=== PATIENT | male | born 1975 | race Caucasian/White ===

== ENCOUNTER 2023-06-19 10:10 | Emergency (ER) | payer OTHER, SELFPAY ==
[2023-06-19 10:39] VITALS: BP 131/87; PULSE 90; RESP 16; TEMP 36.8; O2SAT 98
--- NOTE | 2023-06-19 14:27 | ED.WOUNDLAC ---
HPI - Wound/Laceration General Chief Complaint: Wound/Laceration Stated Complaint: finger laceration Time Seen by Provider: 06/19/23 13:25 Source: patient Mode of arrival: ambulatory Limitations: no limitations History of Present Illness HPI narrative: This is a 47-year-old male that presents to the emergency department for a laceration to the left 2nd finger sustained just prior to arrival. Reports he accidentally cut himself with a knife at work. Reports bleeding and pain to the area. He is up-to-date on his tetanus vaccination. Denies decreased range of motion or numbness. Review of Systems Review of Systems: CONSTITUTIONAL: Denies fever SKIN: Reports laceration NEUROLOGIC: Denies numbness All systems reviewed & are unremarkable except as noted in HPI and below PMFSH Past Medical History Medical History (Updated 06/19/23 @ 15:10 by Ankita Arthur PA-C) No active medical problems Social History Social History (Updated 06/19/23 @ 14:29 by Ankita Arthur PA-C) Occupation/Education: occupation Additional occupation/education comments: [employer] Ex[employer] Narrative: GENERAL: Well-appearing, well-nourished, and in no acute distress. HEAD: Normocephalic, atraumatic. EYES: EOMI. EXTREMITIES: Normal range of motion. No edema. Left 2nd finger with 1 cm linear laceration in the subcutaneous tissue over the middle phalanx SKIN: Warm, dry, no rash. NEURO: No focal deficits. Alert and oriented x3. PSYCH: Normal mood and affect Course Course Emergency Course: Patient educated on further wound care Vital Signs Vital signs: Vital Signs Temperature 98.3 F 06/19/23 10:39 Pulse Rate 90 06/19/23 10:39 Respiratory Rate 16 06/19/23 10:39 Blood Pressure 131/87 06/19/23 10:39 Pulse Oximetry 98 06/19/23 10:39 Temperature 98.3 F 06/19/23 10:39 Pulse Rate 90 06/19/23 10:39 Respiratory Rate 16 06/19/23 10:39 Blood Pressure 131/87 06/19/23 10:39 Pulse Oximetry 98 06/19/23 10:39 Procedures Laceration Laceration 1: Date: 06/19/23 Time: 15:09 Site: hand Side (If applicable): left Size (cm): 1 Description: linear Depth: simple, single layer Local Anesthetic: lidocaine 1% Amount of anesthesia used (mL): 4 Pre-repair: irrigated ====== Skin Level ====== Skin layer closed with: nylon Size (cm): 4-0 Number of sutures: 1 Technique: simple, interrupted ====== Subcutaneous Layer ====== ====== Muscle Layer ====== ====== Tendon Layer ====== MDM - Wound/Laceration MDM Narrative Medical decision making narrative: Patient presents to the emergency department for laceration of the left 2nd finger sustained just prior to arrival. His wound was irrigated and closed with sutures. He is up-to-date on tetanus. Was educated on further wound care. He is to follow up with primary provider. He was given warnings to return to the ER Differential Diagnosis Differential diagnosis: Likely laceration, abrasion and avulsion of skin Critical Care Time Critical Care Time Critical Care Time: No Discharge Plan Discharge Clinical Impression: Laceration Patient Disposition: Home, Self-Care Condition: Stable Instructions: Care For Your Stitches (ED), Laceration (ED) Additional Instructions: Return to the emergency department if you experience fever, redness or swelling of your wound, abnormal drainage from your wound, or any other symptoms that are concerning to you. Apply antibiotic ointment daily. Do not soak the wound. Clean with mild soap and water daily Follow-up with your primary care doctor for suture removal in 10-14 days. Follow-up/Referrals: Minesh,Robert Bran DO [Primary Care Provider] - 2 Weeks
[2023-06-19] MEDS: LIDOCAINE HCL 1% LOCAL INJ 10 ML VIAL INFILTRATE (14:30)
[2023-06-19 15:50] VITALS: BP 127/69; PULSE 84; RESP 18; TEMP 36.9; O2SAT 99
== END 2023-06-19 15:40 | disposition home or self-care (01) ==
PROVIDERS: Emergency Provider Physician Assistant; PCP Family Medicine
DX: S61.211A Laceration without foreign body of left index finger without damage to nail, initial encounter (principal); W26.0XXA Contact with knife, initial encounter; Y99.0 Civilian activity done for income or pay
CPT/HCPCS: 12001; 99282